=== PATIENT | male | born 1995 | race Two or more races ===

== ENCOUNTER → 2024-12-07 | Outpatient (CLI) | payer OTHER, MEDICAID, SELFPAY ==
[2024-12-07 16:54] LABS: Ferritin 59 ng/mL (10.5-307.3); Iron 122 mcg/dL (65-175); Total Iron Binding Capacity 365 mcg/dL (250-425)
== END | disposition home or self-care (01) ==
LOC: COPL 14:40
PROVIDERS: Referring Provider Psychiatry & Neurology Neurology; Visit Provider Psychiatry & Neurology Neurology
DX: G25.81 Restless legs syndrome (principal)
CPT/HCPCS: 36415; 82728; 83540; 83550